=== PATIENT | male | born 1960 | race Caucasian/White ===

== ENCOUNTER 2022-08-23 21:53 | Emergency (ER) | payer SELFPAY ==
[~2022-08-23] VITALS: Ht 165.1 cm; Wt 83.9 kg
--- NOTE | 2022-08-23 21:58 | NUR ---
BIBA TO BED #3
--- NOTE | 2022-08-23 21:59 | NUR ---
Pt brought in by [employer] run #[id number], coming from streets due to pt being homeless. Pt c/o having a seizure about 45 minutes ago witnessed by [employer] employees who called 911. Unkown how long seizure lasted. Pt states he hit his head but no LOC. Pt is currently A&Ox4. No sob. Denies n/v. Has 4/10 head pain due to hitting head. HR slightly elevated at 103, all other vitals stable. Has hx of seizures and states he takes Keppra and is compliant but that today he did not take his med. Has no other medical conditions. NKA. Bed in lowest position. Connected to nuclear monitoring technician.
[2022-08-23 22:06] VITALS: BP 113/73
--- NOTE | 2022-08-23 22:14 | NUR ---
62YR OLD MALE BIB EMS C/O SZ. [place] , HAD A SZ 45 MINS PIOR TO ARRIVAL. BYSTANDER CALLED 911. PT IS A&OX4 HAS HX OF . 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 RESP EVEN AND UNLABORED. 20G L HAND POST EMS. PT STATES HAVING HEAD PAIN 8/10 SHARP NO PAIN RADIATING. PT HIT HEAD ON GROUND DURING SZ. SZ PADS IN PLACE ON BED SIDERAILS X2. BED AT LOWEST POSITION . NKDA SZ
--- NOTE | 2022-08-23 22:44 | NUR ---
PT SAT 89%RA PUT PT ON 2L VIA NC. 96%2L
[2022-08-23] MEDS ORDERED: levETIRAcetam 1,000 MG in NACL 0.9% 100 ML IV ONE (22:50)
[2022-08-23] MEDS ORDERED: ACETAMINOPHEN EXTRA STRENGTH 500 MG TAB PO ONE (22:50)
--- NOTE | 2022-08-23 22:54 | NUR ---
Dr. miner at bedside
[2022-08-23 23:07] LABS: BASOPHILS % (AUTO) 0.2 % (0.0-2.0); EOSINOPHILS # (AUTO) 0.2 K/uL (0-0.4); EOSINOPHILS % (AUTO) 3.4 % (0.0-4.0); HEMATOCRIT 32.2 % (36-52); HEMOGLOBIN 11.1 g/dL (12.0-18.0); LYMPHOCYTES # (AUTO) 0.9 K/uL (2.0-11.5); LYMPHOCYTES % (AUTO) 15.8 % (20.5-51.1); MEAN CORPUSCULAR HEMOGLOBIN 37 pg (27-31); MEAN CORPUSCULAR HGB CONC 34 g/dL (33-37); MEAN CORPUSCULAR VOLUME 107.5 fL (80-94); MONOCYTES # (AUTO) 0.9 K/uL (0.8-1.0); NEUTROPHILS # (AUTO) 3.8 K/uL (1.8-7.7); NEUTROPHILS % (AUTO) 64.6 % (42.2-75.2); PLATELET COUNT (AUTO) 76 K/uL (140-450); RED BLOOD CELL COUNT(AUTO) 2.99 MIL/uL (4.20-6.10); WHITE BLOOD COUNT (AUTO) 5.9 K/uL (4.8-10.8)
[2022-08-23] MEDS ORDERED: levETIRAcetam 100 MG/ML VIAL IV ONE (23:08)
--- NOTE | 2022-08-23 23:30 | NUR ---
PT TO CT
[2022-08-23 23:48] LABS: ALBUMIN 2.3 g/dL (3.4-5.0); ANION GAP 9.7 (8-16); CARBON DIOXIDE 29.6 mmol/L (21-32); CREATININE 0.7 mg/dL (0.6-1.3); POTASSIUM 3.3 mmol/L (3.5-5.1); TOTAL BILIRUBIN 2.1 mg/dL (0.0-1.0)
--- NOTE | 2022-08-24 01:43 | NUR ---
pt resting, respirations even and unlabored. pt on bedside campaign coordinator
[2022-08-24 03:00] VITALS: BP 106/72
--- NOTE | 2022-08-24 03:00 | NUR ---
Patient discharged with v/s stable. Written and verbal after care instructions given and explained. Patient verbalized understanding. Ambulatory with steady gait. All questions addressed prior to discharge. Advised to follow up with PMD.
--- NOTE | 2022-08-24 03:09 | NUR ---
The patient's care was reviewed and supervised by Nelida Harden RN.
== END 2022-08-24 03:00 | disposition home or self-care (01) ==
LOC: MED 21:53
DX: S09.90XA Unspecified injury of head, initial encounter (principal); R56.9 Unspecified convulsions; X58.XXXA Exposure to other specified factors, initial encounter; Y93.89 Activity, other specified; Y92.89 Other specified places as the place of occurrence of the external cause; Y99.8 Other external cause status
CPT/HCPCS: 36415; 70450; 72125; 80053; 83690; 85025; 96374; 99284; J1953